=== PATIENT | male | born 1970 | race Two or more races ===

== ENCOUNTER 2023-11-24 08:20 | Day surgery (SDC) | payer OTHER ==
[2023-11-18 16:14] VITALS: BMI 31.9
[2023-11-24] MEDS ORDERED: MIDAZOLAM HCL 2 MG/2 ML SINGLE DOSE VIAL ONE ×2 (09:22→09:26)
[2023-11-24] MEDS ORDERED: LIDOCAINE HCL/PF 2% SDV 5ML VIAL ONE (09:22)
[2023-11-24] MEDS ORDERED: PROPOFOL 20 ML ONE (09:22)
[2023-11-24] MEDS ORDERED: ROPIVACAINE HCL/PF 100 MG/20 ML VIAL ONE (09:30)
[2023-11-24] MEDS ORDERED: ceFAZolin SODIUM 1 GM VIAL ONE (10:31)
[2023-11-24] MEDS ORDERED: DEXAMETHASONE SOD PHOSPHATE 4 MG/1 ML VIAL ONE (10:31)
[2023-11-24] MEDS ORDERED: VANCOMYCIN 1,000 MG VIAL (RESTRICTED TO ID ONLY) ONE (11:22)
[2023-11-24] MEDS ORDERED: ONDANSETRON 4 MG/2 ML VIAL IVPUSH PRN (13:28)
[2023-11-24] MEDS ORDERED: oxyCODONE HCL 5 MG TABLET PO PRN (13:28)
[2023-11-24] MEDS: ACETAMINOPHEN 1000 MG/100 ML BAG IVPB ONE (13:30)
[2023-11-24] MEDS ORDERED: LACTATED RINGERS SOLUTION 1,000 ML IV SCH (13:30)
[2023-11-24 14:47] VITALS: PULSE 72; RESP 16; TEMP 97.1
[2023-11-24 15:47] VITALS: BP 141/102
== END 2023-11-24 15:10 | disposition home or self-care (01) ==
LOC: FASU 08:20
PROVIDERS: ATTEND Orthopaedic Surgery
PROC: 0PS904Z Reposition Right Clavicle with Internal Fixation Device, Open Approach (ICD-10-PCS; principal; 2023-11-24 11:08)
DX: S42.021A Displaced fracture of shaft of right clavicle, initial encounter for closed fracture (principal); X58.XXXA Exposure to other specified factors, initial encounter; Y92.9 Unspecified place or not applicable; Y93.9 Activity, unspecified
CPT/HCPCS: 23515; C1713; 73000-TC-RT-FY; 94760; J0131